=== PATIENT | male | born 1975 | race Two or more races ===

== ENCOUNTER 2025-02-23 12:04 | Emergency (ER) | payer MEDICAID, SELFPAY ==
[2025-02-23 12:05] VITALS: BMI 33.7
[2025-02-23 12:21] VITALS: BP 167/110; PULSE 93; RESP 18; TEMP 37; O2SAT 99
--- NOTE | 2025-02-23 13:33 | XR_ITS ---
Examination: Abdomen sonogram, Limited Date and time of exam: February 23, 2025 1426 hours INDICATIONS: Right upper abdominal pain nausea vomiting beginning last night Technique: Real-time betancourt scale transabdominal sonographic images of the upper abdomen obtained. Findings: Multiple gallstones Gallbladder wall 0.5 cm suspicious for edema Common bile duct 0.3 cm Pancreatic head 2.5 cm Liver 17.9 cm mildly irregular with fatty infiltration Normal hepatopedal portal venous flow Patent IVC IMPRESSION: Suspicious for acute calculus cholecystitis Recommend HIDA scan or MRCP follow-up
--- NOTE | 2025-02-23 13:33 | PD.EDRME ---
Rapid Medical Screening Exam RME Arrival date/time: 02/23/25 12:04 49 y male here with right upper quadrant pain for three days. I have greeted and performed a focused initial assessment of this patient. Initial appropriate labs ordered at this time. A comprehensive ED assessment and evaluation of the patient and analysis of all test and completion of medical decision making process will be conducted by additional ED provider. Chief Complaint: Abdominal Pain Time Seen by Provider: 02/23/25 12:49 Vital signs: Vital Signs Temperature 98.6 F 02/23/25 12:21 Pulse Rate 93 02/23/25 12:21 Respiratory Rate 18 02/23/25 12:21 Blood Pressure 167/110 H 02/23/25 12:21 Pulse Oximetry (%) 99 02/23/25 12:21 Oxygen Delivery Method Room Air 02/23/25 12:21
[2025-02-23 13:44] LABS: Collection Type, Urine Clean Catch; Squamous Epithelial Cell,Urine 0 /hpf (0-5)
[2025-02-23] MEDS: ONDANSETRON ODT 4 MG TABRAP PO (13:51)
[2025-02-23 14:02] LABS: Bilirubin,Urine Negative (Negative); Blood,Urine Trace (Negative); Clarity,Urine Clear (Clear/Hazy); Color,Urine Yellow (Lt Yel-Yel); Glucose, Urine Negative (Negative); Ketones,Urine Negative (Negative); Leukocyte Esterase,Urine Negative (Negative); Nitrite,Urine Negative (Negative); Protein,Urine 1+ (Neg - Trace); RBC,Urine 1 /hpf (0-3); Specific Gravity,Urine 1.036 (1.001-1.035); Urobilinogen,Urine Negative mg/dL (0.0-1.0); WBC,Urine 1 /hpf (0-5)
[2025-02-23 14:10] LABS: Basophils # (Auto) 0.1 Thou/mm3 (0.0-0.2); Basophils % (Auto) 1 % (0-2.5); Eosinophils # (Auto) 0.1 Thou/mm3 (0.0-0.5); Eosinophils % (Auto) 1 % (0-10); Hematocrit 50.4 % (41.0-53.0); Hemoglobin 17.5 g/dL (13.5-16.0); Immature Granulocytes % (Auto) 0 % (0-0); Immature Granulocytes Auto 0.05 Thou/mm3 (0.00-0.00); Lymphocytes # (Auto) 2.1 Thou/mm3 (1.0-4.8); Lymphocytes % (Auto) 18 % (10-50); Mean Corpuscular HGB Conc 34.7 g/dl (31.0-37.0); Mean Corpuscular Volume 89 fL (80-100); Monocytes # (Auto) 0.7 Thou/mm3 (0.0-0.8); Monocytes % (Auto) 6 % (0-12); Neutrophils # (Auto) 8.4 Thou/mm3 (1.8-7.7); Neutrophils % (Auto) 74 % (37-80); Nucleated Red Blood Cell % 0 /100 WBC (0); Platelet Count 184 Thou/mm3 (140-440); Red Blood Count 5.64 Miln/mm3 (4.50-5.90); White Blood Count 11.3 Thou/mm3 (3.8-10.6)
[2025-02-23 14:27] LABS: Alanine Aminotransferase 50 U/L (10-49); Albumin, Serum 5.3 gm/dL (3.5-5.0); Albumin/Globulin Ratio 1.9 (1.2-2.2); Alkaline Phosphatase 65 U/L (46-116); Anion Gap 7 (7-16); Aspartate Amino Transferase 31 U/L (0-34); BUN/Creatinine Ratio 12 Ratio (12-20); Bilirubin,Total 2.4 mg/dL (0.3-1.2); Blood Urea Nitrogen 11 mg/dL (9-23); Calcium 9.8 mg/dL (8.3-10.6); Calcium (Corrected) 9.8 mg/dL (8.5-10.1); Carbon Dioxide 26.7 mMol/L (20.0-31.0); Chloride 105 mMol/L (98-107); Creatinine (Component) 0.9 mg/dL (0.6-1.3); Estimated Creatinine Clearance 115.5 mL/min (>60); Globulin 2.8 gm/dL (2.3-3.5); Glucose 113 mg/dL (74-106); Lipase 27 U/L (12-53); Osmolality,Calculated 277 (275-295); Potassium 4.5 mMol/L (3.4-5.1); Sodium 139 mMol/L (136-145); Total Protein 8.1 gm/dL (5.7-8.2); eGFR > 60 See Note
[2025-02-23 16:42] VITALS: BP 170/102; PULSE 85; RESP 18; TEMP 36.6; O2SAT 99
--- NOTE | 2025-02-23 17:06 | PD.EDABDPN ---
ED Abdominal Pain RME/HPI General Chief Complaint: Abdominal Pain Stated complaint: RUQ ABD PAIN WITH N/V SINCE LAST NIGHT Time seen by provider: 02/23/25 12:49 Arrival date/time: 02/23/25 12:04 RME / HPI RME / HPI narrative: 49-year-old male patient with significant history of cholelithiasis, came in for evaluation regarding right upper quadrant pain. Patient's been having right upper quadrant pain for the last 3 days, getting worse last night with nausea and vomiting. Patient denies any fever. Denies any other complaints. No medications taken prior to arrival. Related Data Allergies Allergy/AdvReac Type Severity Reaction Status Date / Time No Known Allergies Allergy Verified 02/23/25 12:08 Review of Systems Review of Systems Narrative Review of Systems: Review of system reviewed and within normal limits except mentioned in HPI ED Exam Narrative Physical exam: VITAL SIGNS: Reviewed. GENERAL APPEARANCE: Alert and interactive, follows commands, no acute distress, HEAD AND FACE: Non-traumatic. ENT: PERRL, pink conjunctivitis, eyelid no trauma, Mucous membrane moist. NECK: Supple, nontender, no nuchal rigidity. CHEST: No tenderness, no crepitus, no paradoxical movement, no retractions. LUNGS: Clear, well ventilated, symmetric, no rales, no wheezing, no ronchi, no stridor, good breath sounds bilaterally. HEART: Regular rate, regular rhythm, no murmur, no gallops. ABDOMEN: Soft, positive bowel sounds, nondistended, no guarding, nontender, no rebound, no masses, RECTAL: Deferred. GENITAL: Deferred. NEUROLOGICAL: Gross motor function intact sensory function intact, Appropriate for age. MUSCULOSKELETAL: low back nontender, full range of motion. EXTREMITIES: Nontender, full range of motion. SKIN: Color pink, dry, no rash, no lacerations, no abrasions, no contusions. LYMPHATICS: Deferred. Course Quality Measures none Orders Category Date Time Status US gall bladder Stat Exams 02/23/25 13:33 Completed CBC Stat Lab 02/23/25 13:58 Completed Comprehensive Metabolic Panel Stat Lab 02/23/25 13:58 Completed Lipase Stat Lab 02/23/25 13:58 Completed Urinalysis Stat Lab 02/23/25 13:35 Completed Ketorolac Inj [Toradol Inj] Med 02/23/25 17:04 Discontinued 30 mg IM X1 ONE Ondansetron Odt [Zofran Odt] Med 02/23/25 13:33 Discontinued 4 mg PO X1 ONE cefTRIAXone [Rocephin] 1,000 mg Med 02/23/25 17:05 Discontinued Lidocaine 1% 20 ml [Xylocaine 1% 20 ML] 2.1 ml IM X1 Vital Signs Vital signs: Vital Signs Temperature 98.6 F 02/23/25 12:21 Pulse Rate 93 02/23/25 12:21 Respiratory Rate 18 02/23/25 12:21 Blood Pressure 167/110 H 02/23/25 12:21 Pulse Oximetry (%) 99 02/23/25 12:21 Oxygen Delivery Method Room Air 02/23/25 12:21 Abdominal Pain [facility] Narrative [facility] Narrative:: 49-year-old male patient with significant history of cholelithiasis, came in for evaluation regarding right upper quadrant pain. Patient's been having right upper quadrant pain for the last 3 days, getting worse last night with nausea and vomiting. Patient denies any fever. Denies any other complaints. No medications taken prior to arrival. Patient WBC count was noted to be 11.3 total bili elevated 2.4 ALT of 50. Ultrasound of the gallbladder showed Suspicious for acute calculus cholecystitis Recommend HIDA scan or MRCP follow-up Patient eloped from the emergency room Patient data External records reviewed:: None Clinical information provided by:: patient Social determinants that could affect healthcare access:: none Patient has the following chronic illnesses:: None How is presenting disease/condition affected by chronic disease/condition?: no chronic disease Evaluation data The following diagnostics were reviewed and interpreted by me:: lab results and radiology exam(s) Lab and/or radiology exams considered but not ordered:: None Interpretation Summary: See results in MDM Medications / Prescriptions Medications or Prescriptions considered but not ordered:: None Medication administrations:: Medication Administration History Discontinued Medications Ceftriaxone Sodium 1,000 mg/ (Lidocaine HCl 2.1 ml) 0 mg IM X1 ONE Stop: 02/23/25 17:06 Last Admin: 02/23/25 17:54 Dose: 1,000 mg Documented By: OA Ketorolac Tromethamine (Ketorolac Inj 60 Mg/2 Ml Vial) 30 mg IM X1 ONE Stop: 02/23/25 17:05 Last Admin: 02/23/25 17:54 Dose: 30 mg Documented By: OA Ondansetron HCl (Ondansetron Odt 4 Mg Tabrap) 4 mg PO X1 ONE; Protocol Stop: 02/23/25 13:34 Last Admin: 02/23/25 13:51 Dose: 4 mg Documented By: GM Toradol IM Zofran ceftriaxone IM Consultations Consultation(s) initiated? (list below): No Diagnosis Differential diagnosis abdominal pain: abdominal pain, constipation and other (Cholelithiasis) Most likely diagnosis given after review of the tests above:: Cholelithiasis Admission Indicated Admission indicated?: not indicated Explain why admission is indicated or not indicated:: Elopement Admission Request Was there a request for admission?: No Disposition Plan Disposition Plan: other (specify) (Elopement) Discharge Plan Plan Patient Disposition: Elopement Prescriptions/Referrals Referrals: Otoniel Melissa MD [Primary Care Provider] - In 1 week Problem List Clinical Impression: Cholelithiasis Patient/Caregiver Discharge Instructions Print Language: Chadian
[2025-02-23 17:49] VITALS: BP 165/112; BP 183/101; PULSE 77; RESP 18; TEMP 36.9; O2SAT 96
[2025-02-23] MEDS: KETOROLAC INJ 60 MG/2 ML VIAL 30 MG IM (17:54)
[2025-02-23] MEDS: cefTRIAXone 1,000 MG, LIDOCAINE 1% 20 ML 2.1 ML IM (17:54)
--- NOTE | 2025-02-23 18:10 | PC.NURSE ---
PATIENT WAS INSTRUCTED THAT WE ARE WAITING FOR MRI AT THIS TIME. MRI WONT BE AVAILABLE TILL THE AM. PT WAS GIVEN PAIN MEDS AND ABX IM. NO PAIN AT THIS TIME. PT STATES HE WILL COME BACK IN THE MORNING FOR EXAM.
--- NOTE | 2025-02-23 18:53 | PC.NURSE ---
Pt expressed concern of MRCP being done explained in liberian it will not be one until tomorrow and pt decided to elope and return to Er tomorrow, provider made aware
== END 2025-02-23 18:54 | disposition left against medical advice (07) ==
PROVIDERS: Nurse Practitioner Primary Care; Emergency Provider Emergency Medicine; PCP Family Medicine
DX: K80.20 Calculus of gallbladder without cholecystitis without obstruction (principal); Z53.29 Procedure and treatment not carried out because of patient's decision for other reasons
CPT/HCPCS: 36415; 76705; 80053; 81001; 83690; 85025; 96372; 99281; J0696; J1885; J3490; Q0162

== ENCOUNTER 2025-02-24 07:45 | Day surgery (SDC) | payer MEDICAID, SELFPAY ==
[2025-02-24] VITALS (10 sets, daily range): BP systolic 113–171; BP diastolic 75–103; PULSE 54–92; RESP 12–20; TEMP 36.3–36.9; O2SAT 93–100
--- NOTE | 2025-02-24 | XR_ITS ---
MRI abdomen, without contrast. MRCP Date and time of exam: February 24, 2025 0906 hours INDICATIONS: Right upper abdominal pain beginning 3 days ago vomiting yesterday, gallbladder sonogram yesterday cholelithiasis, gallbladder wall 0.5 cm with edema Technique: Multiple axial and coronal images of the abdomen have been obtained with the Siemens 1.5T MRI scanner. Images obtained included T1 weighted transverse images, T2-weighted transverse images, T2-weighted transverse images fat-suppressed, T2 weighted haste fat suppressed transverse images, T1 weighted images, in and out of phase images, T2-weighted coronal images, breath hold, T2 weighted haze coronal images as well as T2 weighted coronal thick slab images, MRCP. Findings: No focal liver lesions Contracted gallbladder Gallstones Gallbladder wall edema Normal common hepatic common bile duct no stones No pancreatic mass or peripancreatic edema Spleen is not enlarged No ascites No hydronephrosis Aorta normal size IMPRESSION: Findings most consistent with acute calculus cholecystitis No common hepatic or common bile duct stones
--- NOTE | 2025-02-24 11:24 | PD.EDABDPN ---
ED Abdominal Pain RME/HPI General Chief Complaint: Abdominal Pain Stated complaint: NEEDS IMG OF GALLBLADDER Time seen by provider: 02/24/25 08:33 Arrival date/time: 02/24/25 07:45 RME / HPI RME / HPI narrative: 49-year-old male patient with no significant medical history, came in for evaluation regarding request for imaging to rule out choledocholithiasis. Patient has been having right upper quadrant pain, for several days, came here yesterday and was noted to have possible acute calculus cholecystitis with elevated total bili of 2.4. Patient continues to have pain to the right upper quadrant, described as dull ache, severity moderate. Patient denies any fever. Denies any other complaints. No medication was taken prior to arrival. Patient was given Toradol IM and suppression IM. Patient eloped from the emergency room yesterday. Related Data Allergies Allergy/AdvReac Type Severity Reaction Status Date / Time No Known Allergies Allergy Verified 02/24/25 07:48 Review of Systems Review of Systems Narrative Review of Systems: Review of system reviewed and within normal limits except mentioned in HPI ED Exam Narrative Physical exam: VITAL SIGNS: Reviewed. GENERAL APPEARANCE: Alert and interactive, follows commands, no acute distress, HEAD AND FACE: Non-traumatic. ENT: PERRL, pink conjunctivitis, eyelid no trauma, Mucous membrane moist. NECK: Supple, nontender, no nuchal rigidity. CHEST: No tenderness, no crepitus, no paradoxical movement, no retractions. LUNGS: Clear, well ventilated, symmetric, no rales, no wheezing, no ronchi, no stridor, good breath sounds bilaterally. HEART: Regular rate, regular rhythm, no murmur, no gallops. ABDOMEN: Soft, positive bowel sounds, nondistended, no guarding, right upper quadrant tenderness, no rebound, no masses, RECTAL: Deferred. GENITAL: Deferred. NEUROLOGICAL: Gross motor function intact sensory function intact, Appropriate for age. MUSCULOSKELETAL: low back nontender, full range of motion. EXTREMITIES: Nontender, full range of motion. SKIN: Color pink, dry, no rash, no lacerations, no abrasions, no contusions. LYMPHATICS: Deferred. Course Quality Measures none Orders Category Date Time Status Patient Condition Routine Admission 02/24/25 13:[address] in Surgical Day Care Routine Admission 02/24/25 13:14 Active Activity as Tolerated Routine Care 02/24/25 13:14 Ordered COVID-19 Screening Questionnaire NOW Care 02/24/25 12:34 Active Decision to Admit X1 Care 02/24/25 12:34 Active MRI Screening NOW Care 02/24/25 08:33 Active Obtain Written Consent For: NOW Care 02/24/25 13:14 Active MR MRCP Stat Exams 02/24/25 Completed CBC [CBC] Stat Lab 02/24/25 11:37 Completed CMP [Comprehensive Metabolic Panel] Stat Lab 02/24/25 11:37 Completed PT [Prothrombin Time with INR] Stat Lab 02/24/25 11:37 Completed PTT [Partial Thromboplastin Time] Stat Lab 02/24/25 11:37 Completed Bupivacaine Mpf 0.5% [Sensorcaine-Mpf Inj 0.5%] Med 02/24/25 13:43 Discontinued 30 ml .ROUTE .STK-MED ONE Dexamethasone Inj [Decadron Inj] Med 02/24/25 13:43 Discontinued 10 mg .ROUTE .STK-MED ONE Ketorolac Inj [Toradol Inj] Med 02/24/25 13:43 Discontinued 30 mg .ROUTE .STK-MED ONE Midazolam Inj [Versed Inj] Med 02/24/25 13:41 Discontinued 2 mg .ROUTE .STK-MED ONE Ondansetron Inj [Zofran Inj] Med 02/24/25 13:43 Discontinued 4 mg .ROUTE .STK-MED ONE Piper/Tazo 3.375 gm Premix [Zosyn] Med 02/24/25 11:23 Discontinued 3.375 gm in 50 ml IV X1 Propofol Inj [Diprivan Inj] Med 02/24/25 13:40 Discontinued 200 mg IV .STK-MED ONE Rocuronium Inj [Zemuron Inj] Med 02/24/25 13:43 Discontinued 100 mg .ROUTE .STK-MED ONE Sodium Chloride 0.9% 1000 ml [Ns] 1,000 ml Med 02/24/25 13:15 Active IV 100 mls/hr Sodium Chloride 0.9% 1000 ml [Ns] 1,000 ml Med 02/24/25 11:24 Discontinued IV 999 mls/hr Sugammadex Inj [Bridion Inj] Med 02/24/25 13:41 Discontinued 200 mg .ROUTE .STK-MED ONE fentaNYL INJ [Sublimaze Inj] Med 02/24/25 13:41 Discontinued 100 mcg .ROUTE .STK-MED ONE Code Status Routine Oth 02/24/25 13:14 Ordered Vital Signs Vital signs: Vital Signs Temperature 98.4 F 02/24/25 07:54 Pulse Rate 75 02/24/25 07:54 Respiratory Rate 18 02/24/25 07:54 Blood Pressure 171/103 H 02/24/25 07:54 Pulse Oximetry (%) 93 L 02/24/25 07:54 Oxygen Delivery Method Room Air 02/24/25 07:54 Abdominal Pain [facility] Narrative [facility] Narrative:: 49-year-old male patient with no significant medical history, came in for evaluation regarding request for imaging to rule out choledocholithiasis. Patient has been having right upper quadrant pain, for several days, came here yesterday and was noted to have possible acute calculus cholecystitis with elevated total bili of 2.4. Patient continues to have pain to the right upper quadrant, described as dull ache, severity moderate. Patient denies any fever. Denies any other complaints. No medication was taken prior to arrival. Patient was given Toradol IM and suppression IM. Patient eloped from the emergency room yesterday. MRCP came back with acute calculus cholecystitis no common bile duct stone noted patient's total bili was noted to be 2.5 today the rest of the labs unremarkable. Patient received IV fluids IV Zosyn. Spoke with general surgeon on-call, Dr. Robles and examined the patient in the emergency room. Patient will have surgery today Patient data External records reviewed:: None Clinical information provided by:: patient Social determinants that could affect healthcare access:: none Patient has the following chronic illnesses:: None How is presenting disease/condition affected by chronic disease/condition?: no chronic disease Evaluation data The following diagnostics were reviewed and interpreted by me:: lab results and radiology exam(s) Lab and/or radiology exams considered but not ordered:: None Interpretation Summary: See results in MDM Medications / Prescriptions Medications or Prescriptions considered but not ordered:: None Medication administrations:: Medication Administration History Sodium Chloride (Ns) 1,000 mls @ 100 mls/hr IV .Q10H JENNI Stop: 03/26/25 13:14 Last Admin: 02/24/25 13:30 Dose: 100 mls/hr Documented By: Discontinued Medications Bupivacaine HCl (Bupivacaine Mpf 0.5% 30 Ml Vial) Confirm Administered Dose 30 ml .ROUTE .STK-MED ONE Stop: 02/24/25 13:44 Dexamethasone Sodium Phosphate (Dexamethasone Sod Phos Inj 10 Mg/Ml Vial) Confirm Administered Dose 10 mg .ROUTE .STK-MED ONE Stop: 02/24/25 13:44 Fentanyl Citrate (Fentanyl Cit Inj 50 Mcg/Ml Amp 2ml) Confirm Administered Dose 100 mcg .ROUTE .STK-MED ONE Stop: 02/24/25 13:42 Piperacillin/Tazobactam/Dextrose (Zosyn) 3.375 gm in 50 mls @ 100 mls/hr IV X1 ONE Stop: 02/24/25 11:52 Last Infusion: 02/24/25 12:19 Dose: Infused Documented By: Admin: 02/24/25 11:45 Dose: 100 mls/hr Documented By: ANGELIUQE Sodium Chloride (Ns) 1,000 mls @ 999 mls/hr IV .Q1H1M ONE Stop: 02/24/25 12:24 Last Infusion: 02/24/25 12:53 Dose: Infused Documented By: Admin: 02/24/25 11:45 Dose: 999 mls/hr Documented By: ANGELIQUE Ketorolac Tromethamine (Ketorolac Inj 30 Mg/Ml Vial) Confirm Administered Dose 30 mg .ROUTE .STK-MED ONE Stop: 02/24/25 13:44 Midazolam HCl (Midazolam Inj 1 Mg/Ml Vial 2 Ml) Confirm Administered Dose 2 mg .ROUTE .STK-MED ONE Stop: 02/24/25 13:42 Ondansetron HCl (Ondansetron Inj 2 Mg/Ml Inj 2 Ml) Confirm Administered Dose 4 mg .ROUTE .STK-MED ONE Stop: 02/24/25 13:44 Propofol (Propofol Inj 10 Mg/Ml Vial 20 Ml) Confirm Administered Dose 200 mg IV .STK-MED ONE Stop: 02/24/25 13:41 Rocuronium Drain (Rocuronium Inj 10 Mg/Ml Vial 10 Ml) Confirm Administered Dose 100 mg .ROUTE .STK-MED ONE Stop: 02/24/25 13:44 Sugammadex Sodium (Sugammadex Inj 100 Mg/Ml 2ml Vial) Confirm Administered Dose 200 mg .ROUTE .STK-MED ONE Stop: 02/24/25 13:42 IV fluids, Zosyn Consultations Consultation(s) initiated? (list below): Yes Consultation #1 (Physician, Specialty, Details): Dr Adams, admitted the patient Diagnosis Differential diagnosis abdominal pain: abdominal pain and other (Acute calculus cholecystitis) Most likely diagnosis given after review of the tests above:: Acute calculus cholecystitis Admission Indicated Admission indicated?: indicated Admission Request Was there a request for admission?: Yes Admission Attestation Admission request attestation: Discussed case with [] from Hospitalist service regarding admission. Discussed patients ED course, exam findings, labs, and radiology results. The Hospitalist [agrees,declines] to accept the patient for admission. Disposition Plan Disposition Plan: Admit Discharge Plan Plan Patient Disposition: Admit Acute Care w/in Hospital Disposition Comment: Stable Problem List Clinical Impression: Acute calculous cholecystitis
[2025-02-24] MEDS: SODIUM CHLORIDE 0.9% 1000 ML 1,000 ML 999 ML IV (11:45)
[2025-02-24] MEDS: PIPER/TAZO 3.375 GM PREMIX 3.375 GM/50 ML BAG IV (11:45)
[2025-02-24 11:46] LABS: Basophils # (Auto) 0.1 Thou/mm3 (0.0-0.2); Basophils % (Auto) 1 % (0-2.5); Eosinophils # (Auto) 0.2 Thou/mm3 (0.0-0.5); Eosinophils % (Auto) 3 % (0-10); Hematocrit 49.5 % (41.0-53.0); Hemoglobin 17.1 g/dL (13.5-16.0); Immature Granulocytes % (Auto) 1 % (0-0); Immature Granulocytes Auto 0.04 Thou/mm3 (0.00-0.00); Lymphocytes # (Auto) 2.5 Thou/mm3 (1.0-4.8); Lymphocytes % (Auto) 37 % (10-50); Mean Corpuscular HGB Conc 34.5 g/dl (31.0-37.0); Mean Corpuscular Hemoglobin 30.6 pg (25.0-35.0); Mean Corpuscular Volume 89 fL (80-100); Monocytes # (Auto) 0.4 Thou/mm3 (0.0-0.8); Monocytes % (Auto) 6 % (0-12); Neutrophils # (Auto) 3.5 Thou/mm3 (1.8-7.7); Neutrophils % (Auto) 53 % (37-80); Nucleated Red Blood Cell % 0 /100 WBC (0); Platelet Count 163 Thou/mm3 (140-440); RDW Standard Deviation 40.5 fL (35.1-43.9); Red Blood Count 5.59 Miln/mm3 (4.50-5.90); White Blood Count 6.7 Thou/mm3 (3.8-10.6)
[2025-02-24 12:02] LABS: Alanine Aminotransferase 44 U/L (10-49); Albumin, Serum 4.7 gm/dL (3.5-5.0); Albumin/Globulin Ratio 1.6 (1.2-2.2); Alkaline Phosphatase 53 U/L (46-116); Anion Gap 7 (7-16); Aspartate Amino Transferase 28 U/L (0-34); BUN/Creatinine Ratio 14 Ratio (12-20); Bilirubin,Total 2.5 mg/dL (0.3-1.2); Blood Urea Nitrogen 14 mg/dL (9-23); Calcium 9.4 mg/dL (8.3-10.6); Calcium (Corrected) 9.4 mg/dL (8.5-10.1); Carbon Dioxide 28.5 mMol/L (20.0-31.0); Chloride 106 mMol/L (98-107); Globulin 2.9 gm/dL (2.3-3.5); Glucose 101 mg/dL (74-106); Osmolality,Calculated 281 (275-295); Potassium 4.7 mMol/L (3.4-5.1); Sodium 141 mMol/L (136-145); Total Protein 7.6 gm/dL (5.7-8.2); eGFR > 60 See Note
[2025-02-24 12:04] LABS: INR 1.1 (0.9-1.3); Partial Thromboplastin Time 30.9 Seconds (22.0-36.0); Prothrombin Time 11.8 Seconds (9.0-12.2)
--- NOTE | 2025-02-24 13:16 | PD.SURHP ---
HPI Date of Admission 02/24/2025 Chief Complaint Chief Complaint: Patient is admitted with the complaints of acute cholecystitis with cholelithiasis HPI History of present illness revealed that the patient developed pain starting Thursday which was 3 days ago. The pain was located in the upper abdomen radiating to the site. He was nauseated with no vomiting. He was not able to eat. He had no fever or chills. He came to the emergency room and was found to have a gallstones yesterday. He was advised to come back for MRCP today which was done and it was negative. Patient had a similar pain 3 years ago when he was living in [place] and had abdominal pain at the time evaluated with endoscopic and was told that he had gallstones but surgery was not recommended for some reason. Patient's other medical problem consist of hypertension. Patient is a field irrigation worker. Past Medical History Past Medical History CARDIAC: Negative Congestive Heart Failure RESPIRATORY: Negative Respiratory Disorders or Chronic Obstructive Pulmonary Disease (COPD) GENITOURINARY: Negative Renal Disease ENDOCRINE: Negative Diabetes Mellitus Type 1 or Diabetes Mellitus Type 2 Social History SMOKING STATUS: Current every day smoker Meds Home Medications and Allergies Allergies Allergy/AdvReac Type Severity Reaction Status Date / Time No Known Allergies Allergy Verified 02/24/25 07:48 Exam Vital Signs Temp Pulse Resp BP Pulse Ox O2 Del Method 98.4 F 54 L 18 154/96 H 100 Room Air 02/24/25 12:00 02/24/25 12:00 02/24/25 12:00 02/24/25 12:00 02/24/25 12:00 02/24/25 12:00 Narrative Exam Physical examination revealed a slightly obese male who is 5 foot 8 inches tall weighing 220 pounds. His vital signs are normal Constitutional Constitutional: mild distress Routine Abdominal Exam Comments: Examination of the abdomen showed tenderness in the right upper quadrant with a positive Lindo sign. Because of his obesity it is difficult to elicit significant physical findings. Routine Rectal Exam Comments: Negative Routine Exam Comments: Negative Results Results: Laboratory Laboratory Narrative: Patient's laboratory workup is within normal limits Results: Imaging Imaging narrative: Ultrasound showed gallbladder with multiple stones. Radiologist read as acute cholecystitis MRCP was negative for any common bile duct stones Assessment & Plan Additional Assessment Additional comments: Impression: Acute calculus cholecystitis Mild obesity History of hypertension Plan Plan: I advised the patient to undergo laparoscopic cholecystectomy. The procedure was explained to him using an urgent care physician. The risk of the procedure including injury to the internal organs requiring open surgery were discussed with him. Patient also was told about the need for open cholecystectomy in case the laparoscopic approach fails. He is agreeable. Quality Measures Quality Measures none
[2025-02-24] MEDS: SODIUM CHLORIDE 0.9% 1000 ML 1,000 ML 100 ML IV (13:30)
--- NOTE | 2025-02-24 13:54 | PC.NURSE ---
Report given to Surgery team H[place]
--- NOTE | 2025-02-24 14:11 | PC.NURSE ---
Patient taken to surgery
--- NOTE | 2025-02-24 16:19 | PD.SUROPNT ---
Date of Procedure 02/24/25 Pre Op Diagnosis Symptomatic cholelithiasis with acute cholecystitis Post Op Diagnosis chronic cholecystitis with cholelithiasis Procedure Laparoscopic cholecystectomy Findings Patient is found to have extensive inflammation of the gallbladder which was very thickened and surrounded by considerable inflammatory process which was stuck to the surrounding structures making it extremely difficult to dissect out Procedure Description After endotracheal anesthesia was given the patient was placed in supine position and the abdomen was prepped with chloroprep solution and draped in a sterile manner. After time out was performed I injected a few cc of of half percent Marcaine with epinephrine below the umbilicus and I made an incision for about 3 cm in length. The fascia was cleaned and Veress needle was inserted to create a pneumoperitoneum up to 15 mmHg. Then introduced a 12 mm trocar and a 10 mm camera through the fascia and I inspected the intra-abdominal organs as well as the gallbladder and the liver. The gallbladder could not be seen because it is covered with omentum. With considerable difficulty I peeled off of the fatty tissue which was firmly adherent to the body of the gallbladder. Another 5 mm trocar was inserted in the epigastric region under direct vision after injecting some local anesthesia. At this time the patient was kept in reverse Trendelenburg position with the left lateral tilt. The third 5 mm trocar was inserted over the mid axillary line under direct vision and a Rafa and Johnathon grasper was used to hold the fundus of the gallbladder. The retraction was carried out by the assistant community manager moving the fundus of the gallbladder towards the right shoulder of the patient to create enough traction. I placed a another 5 mm trocar in the midaxillary line just lateral to the rectus muscle under direct vision. I used a fenestrated grasper to retract the neck of the gallbladder laterally towards the patient's right hip. The Calot's triangle was exposed and I achieved the critical view of safety as follows: I dissected out the fatty tissue from the hepatocystic triangle and cleared this area. I also dissected inferior and posterior to the gallbladder to identify the cystic duct and the gallbladder wall. Then superiorly I dissected along the cystic plate up to lower one third third of the gallbladder to lift the gallbladder from the liver. The cystic duct was little dilated and was difficult to encircle. At this time I changed the epigastric port to 12 mm port and used a 10 mm right angle to dissect the cystic duct before applying clips. r. At this time I confirmed that only 2 structures entering the gallbladder were cystic artery and the cystic duct. The common duct was seen distally but no dissection was carried out around the duct. I did not see any need for operative cholangiogram in this patient. The cystic duct was clipped doubly and then divided and cystic artery was similarly dealt with the cystic artery could not be easily seen but it was clipped and divided after it from the surrounding adhesions then the gallbladder was removed from the liver bed using Harmonic dhruv to control the small blood vessels as the dissection proceeded. Then the gallbladder was from the liver bed completely and delivered through the umbilical port using an Endopouch. The liver bed was coagulated with cautery to obtain satisfactory hemostasis. The trocars were pulled out from the abdominal cavity and the fascia at the umbilical incision was closed with interrupted 0 Ethibond. Subcutaneous tissues was closed with 3-0 chromic and injected a few cc of half percent Marcaine with epinephrine and the skin was closed with interrupted 4-0 nylon stitches at all the trocar sites. Dressing was applied with 2 x 2 and Tegaderm. Patient tolerated the procedure well and returned to recovery room in stable condition. Anesthesia GETA Pathology / specimen Other (The gallbladder on the stones) IVF Infused 900 Estimated Blood Loss 100 Surgeon Zenaida Adams MD Surgical Staff Operation Date: 02/24/25 16:15 Case Staff Anesthesiologist: Kameron Saab RN First Assistant: Greta Goins RNfield reimbursement manager: Avila Bach
--- NOTE | 2025-02-24 16:20 | SUR.PHASEI ---
1620 Patient arrived to recovery resting comfortably in bed, sleeping and able to arouse with verbal prompting then drifts back to sleep, on oxygen 5L via oxy mask, breathing unlabored, vital signs stable, denies pain, dressing intact to abdomen; dissolvable sutures, gauze, medipore tape, no bleeding noted, denies nausea, report received from Ethan PLA and Dr. Saab
[2025-02-24] MEDS: ONDANSETRON INJ 2 MG/ML INJ 2 ML 4 MG IV (16:45)
--- NOTE | 2025-02-24 17:39 | SUR.PHASEII ---
1739 Patient meets discharge criteria from recovery, awake and alert, breathing unlabored, vital signs stable, dressing intact; no bleeding noted, denies pain, patient voided in the restroom prior to discharge, able to dress himself into his clothing, discharge instructions given to patient and patients mother with the assistance of the telephone hop trainer Cheryl ID#[id number], mother signed discharge instructions. Patient given all his belongings prior to discharge, transported via wheelchair and left in a private vehicle.
== END 2025-02-24 17:39 | disposition home or self-care (01) ==
LOC: SERX 13:19 → S2EX 13:31
PROVIDERS: Nurse Practitioner Family; Emergency Provider Emergency Medicine; Visit Provider Surgery
PROC: 0FT44ZZ Resection of Gallbladder, Percutaneous Endoscopic Approach (ICD-10-PCS; CPT 47562; principal; 2025-02-24 16:00)
DX: K80.10 Calculus of gallbladder with chronic cholecystitis without obstruction (principal); E66.9 Obesity, unspecified; I10 Essential (primary) hypertension; F17.200 Nicotine dependence, unspecified, uncomplicated
CPT/HCPCS: 47562; 36415; 80053; 85025; 85610; 85730; 96361; 96365; 99285; A4217; A4649; J1100; J1885; J2250; J2405; J2543; J2704; J3010; J3490; J7030; S8037; 74181